=== PATIENT | female | born 1985 | race African-American/Black ===

== ENCOUNTER → 2020-12-03 | Outpatient (CLI) | payer BC | LOC: WCC 13:57 | PROVIDERS: ATTEND Internal Medicine Infectious Disease | DX: S81.801A Unspecified open wound, right lower leg, initial encounter (principal); R60.0 Localized edema; W32.0XXA Accidental handgun discharge, initial encounter ==

== ENCOUNTER → 2020-12-14 | Outpatient (CLI) | payer BC | LOC: WCC 10:18 | PROVIDERS: ATTEND Internal Medicine Infectious Disease | DX: S81.801A Unspecified open wound, right lower leg, initial encounter (principal); R60.0 Localized edema; W32.0XXA Accidental handgun discharge, initial encounter ==